=== PATIENT | male | born 1995 | race Caucasian/White ===

== ENCOUNTER 2017-01-29 19:42 | Emergency (ER) | payer BC ==
[~2017-01-29] VITALS: Ht 177.8 cm; Wt 77.3 kg
[2017-01-29 19:50] VITALS: BP 137/70; TEMP 98.8
[2017-01-29] MEDS ORDERED: ADDERALL10 MG PO (19:54)
[2017-01-29 20:45] VITALS: PULSE 54
== END 2017-01-29 20:45 | disposition home or self-care (01) ==
LOC: COL.ER 19:42
DX: B99.9 Unspecified infectious disease (principal); H10.89 Other conjunctivitis